=== PATIENT | female | born 1935 | race Caucasian/White ===

== ENCOUNTER 2017-04-28 15:13 | Emergency (ER) | payer OTHER ==
[~2017-04-28] VITALS: Ht 157.5 cm; Wt 75.0 kg
[2017-04-28 15:15] VITALS: BP 132/71; PULSE 70; RESP 14; TEMP 98.5; O2SAT 97
--- NOTE | 2017-04-28 16:32 | PD ---
HPI Chief Complaint: Fall Time Seen by Provider: 16:21 Travel History International Travel<30 days: No Contact w/Intl Traveler<30days: No Traveled to known affect area: No History of Present Illness HPI 81-year-old female presents the emergency department with her son and daughter status post fall from a "dizzy spell", where the patient fell backwards landing on the right hip and hitting the back of her head on a TV tray. Patient denies loss of consciousness, headache, current dizziness, nausea , vomiting, or inability to ambulate. Patient is not on any type of anticoagulant. Patient states she has had a chronic medically previously status post fall several years ago. Patient does not currently use a cane or walker. She does admit to occasional dizzy spells. She has no other current constitutional complaints. Her pain is minimal except where she has a goose egg on the posterior left scalp. Patient also complains of some tenderness to the right hip. PFSH Past Medical History Cardiovascular Problems: Yes ?: Not Social History Alcohol Use: No Tobacco Use: No Substance Use: No Allergies-Medications (Allergen,Severity, Reaction): Coded Allergies: Sulfa (Verified Allergy, Intermediate, Anaphylaxis, 04/28/17) Reported Meds & Prescriptions Reported Meds & Active Scripts Active Reported Crestor (Rosuvastatin Calcium) 10 Mg Tab 10 Mg PO DAILY Valsartan-Hydrochlorothiazide 80-12.5 Mg Tab 1 Tab PO DAILY Levothyroxine (Levothyroxine Sodium) 50 Mcg Tab 50 Mcg PO DAILY Xanax (Alprazolam) 0.5 Mg Tab 0.5 Mg PO Q8H PRN Prilosec (Omeprazole Magnesium) 20 Mg Tab 40 Mg PO DAILY Review of Systems Except as stated in HPI: all other systems reviewed are Neg General / Constitutional: No: Fever Eyes: No: Visual changes HENT: No: Headaches Cardiovascular: No: Chest Pain or Discomfort Respiratory: No: Shortness of Breath Gastrointestinal: No: Abdominal Pain Genitourinary: No: Dysuria Musculoskeletal: Positive: Myalgias, Pain, No: Arthralgias, Limited ROM Skin: No Rash Neurologic: No: Weakness Psychiatric: No: Depression Endocrine: No: Polydipsia Hematologic/Lymphatic: No: Easy Bruising Physical Exam Narrative GENERAL: Patient is alert and oriented 3. She is noted to ambulate to the room. SKIN: Warm and dry. Normal color. Normal turgor. HEAD: Atraumatic. Normocephalic. Patient is tender "goose egg" to the left posterior scalp. There is no abrasion or laceration. EYES: Pupils equal and round. No scleral icterus. No injection or drainage. No nystagmus was noted. ENT: No nasal bleeding or discharge. Mucous membranes pink and moist. Dental injury. Pharynx is clear. Airway is patent. NECK: Trachea midline. No bony tenderness or step-off. Range of motion is full and nontender. C-spine is cleared utilizing nexus criteria. CARDIOVASCULAR: Regular rate and rhythm. RESPIRATORY: No accessory muscle use. Clear to auscultation. Breath sounds equal bilaterally. GASTROINTESTINAL: Abdomen soft, non-tender, nondistended. Hepatic and splenic margins not palpable. MUSCULOSKELETAL: Extremities without clubbing, cyanosis, or edema. No obvious deformities. Patient has mild to moderate tenderness with palpation to the right posterior lateral hip. Range of motion appears intact. Ankle is normal. NEUROLOGICAL: Awake and alert. No obvious cranial nerve deficits. Motor grossly within normal limits. Five out of 5 muscle strength in the arms and legs. Normal speech. PSYCHIATRIC: Appropriate mood and affect; insight and judgment normal. Data Data Last Documented VS Vital Signs Date Time Temp Pulse Resp B/P Pulse Ox O2 Delivery O2 Flow Rate FiO2 04/28/17 18:49 98 Room Air 04/28/17 16:25 18 04/28/17 15:15 98.5 70 132/71 Orders Electrocardiogram (04/28/17 16:59) Ckmb (Isoenzyme) Profile (04/28/17 16:59) Magnesium (Mg) (04/28/17 16:59) Prothrombin Time / Inr (Pt) (04/28/17 16:59) Act Partial Throm Time (Ptt) (04/28/17 16:59) Troponin I (04/28/17 16:59) Chest, Single Ap (04/28/17 16:59) Aspirin Chew (Aspirin Chew) (04/28/17 17:00) CKMB (04/28/17 17:08) CKMB% (04/28/17 17:08) Complete Blood Count With Diff (04/28/17 17:56) Comprehensive Metabolic Panel (04/28/17 17:56) Ct Brain W/O Iv Contrast(Rout) (04/28/17 18:04) Hip, Uni(Ap&Lat) Wo Ap Pelvis (04/28/17 18:04) Iv Access Insert/Monitor (04/28/17 18:04) Oximetry (04/28/17 18:04) Ecg Monitoring (04/28/17 18:04) Sodium Chloride 0.9% Flush (Ns Flush) (04/28/17 18:15) Labs Laboratory Tests Test 04/28/17 04/28/17 17:08 18:00 Prothrombin Time 11.4 SEC Prothromb Time International 1.0 RATIO Ratio Activated Partial 26.1 SEC Thromboplast Time Sodium Level 140 MEQ/L Potassium Level 3.1 MEQ/L Chloride Level 105 MEQ/L Carbon Dioxide Level 26.3 MEQ/L Anion Gap 9 MEQ/L Blood Urea Nitrogen 26 MG/DL Creatinine 0.83 MG/DL Estimat Glomerular Filtration 66 ML/MIN Rate Random Glucose 110 MG/DL Calcium Level 8.9 MG/DL Magnesium Level 2.1 MG/DL Total Bilirubin 0.4 MG/DL Aspartate Amino Transf 21 U/L (AST/SGOT) Alanine Aminotransferase 26 U/L (ALT/SGPT) Alkaline Phosphatase 77 U/L Total Creatine Kinase 106 U/L Creatine Kinase MB 1.8 NG/ML Troponin I LESS THAN 0.02 NG/ML Total Protein 7.2 GM/DL Albumin 3.6 GM/DL White Blood Count 6.2 TH/MM3 Red Blood Count 4.14 MIL/MM3 Hemoglobin 12.6 GM/DL Hematocrit 37.9 % Mean Corpuscular Volume 91.7 FL Mean Corpuscular Hemoglobin 30.5 PG Mean Corpuscular Hemoglobin 33.3 % Concent Red Cell Distribution Width 13.2 % Platelet Count 193 TH/MM3 Mean Platelet Volume 9.0 FL Neutrophils (%) (Auto) 57.0 % Lymphocytes (%) (Auto) 28.7 % Monocytes (%) (Auto) 11.5 % Eosinophils (%) (Auto) 2.4 % Basophils (%) (Auto) 0.4 % Neutrophils # (Auto) 3.5 TH/MM3 Lymphocytes # (Auto) 1.8 TH/MM3 Monocytes # (Auto) 0.7 TH/MM3 Eosinophils # (Auto) 0.1 TH/MM3 Basophils # (Auto) 0.0 TH/MM3 CBC Comment DIFF FINAL Differential Comment MDM Medical Decision Making Medical Screen Exam Complete: Yes Emergency Medical Condition: Yes Medical Record Reviewed: Yes Differential Diagnosis Dizzy spell. Fall. Head injury. Right hip contusion. Possible fracture. Narrative Course Patient appears medically stable at time of exam. Ice pack is applied to the tender area of the scalp. CT of the head is ordered. X-ray of the right hip and pelvis is ordered. 1700 hrs. patient complains of chest for and pressure. Further questioning finds that the patient did have an PA in 2013 treated with stents in [facility]. She has been down here since last Tuesday. She states she has been taking Mucinex for chest congestion, and states she has had increasing chest pain several times a week for the past 6 months. She states her tallow refiner on her in September and states that she was "dismissed. Patient does not recall the last time she had a stress test. Patient does not feel that chest pain caused her to feel dizzy earlier today causing her fall. She describes her pain as a chest pressure across the anterior upper part of her chest. She states that intermittent and approximately a 3 out of 10 currently. EKG is ordered, as well as chest x-ray, and cardiac labs per protocol. Chest x-ray shows no acute process per radiologist. Right hip x-ray and pelvis shows arthritis but no acute process. She is given 324 mg aspirin by mouth. CT is currently pending as well as the right hip x-ray. CBC is unremarkable. First troponin is less than 0.02. Coagulation studies are normal. TMP shows a sodium 140, potassium is 3.1. Random glucose is 110. Patient is given 20 mEq [address] by mouth. CT of the head is negative for acute process. I discussed all the findings with the patient, and recommended that she stay and be evaluated through the chest pain center for possible cardiac syndrome. The patient currently is pain-free, and is returning to [facility] tomorrow, so she is electing to leave AGAINST MEDICAL ADVICE. Patient states she will follow-up with her tallow refiner once she returns home. Patient should return to emergency department immediately if chest pain worsens. Discussed sources of potassium for her to take to increase her level. No prescriptions are given. Diagnosis Primary Impression: Atypical chest pain Additional Impressions: Fall Qualified Code: W19.XXXA - Fall, initial encounter Contusion of scalp, initial encounter Contusion, hip Qualified Code: S70.01XA - Contusion of right hip, initial encounter Patient Instructions: Chest Pain (DC), General Instructions, Head Injury (ED), Hip Contusion (ED), Scalp Contusion in Adults (ED) Additional Instructions: I discussed all the findings with the patient, and recommended that she stay and be evaluated through the chest pain center for possible cardiac syndrome. The patient currently is pain-free, and is returning to [facility] tomorrow, so she is electing to leave AGAINST MEDICAL ADVICE. Patient states she will follow-up with her tallow refiner once she returns home. Patient should return to emergency department immediately if chest pain worsens. Discussed sources of potassium for her to take to increase her level. No prescriptions are given. Med/Other Pt SpecificInfo: No Meds Exist/No RX given Disposition: 07 AGAINST MEDICAL ADVICE Condition: Stable Prabhu Tam Apr 28, 2017 16:32
[2017-04-28] MEDS ORDERED: LEVO50TA4 PO (16:34)
[2017-04-28] MEDS ORDERED: PRIL20TA2 PO (16:34)
[2017-04-28] MEDS ORDERED: ROSU10 PO (16:34)
[2017-04-28] MEDS ORDERED: VALS80TA2 PO (16:34)
[2017-04-28] MEDS ORDERED: ALPR.5 PO (16:34)
[2017-04-28] MEDS ORDERED: ASPIRIN 81 MG CHEW TAB PO ONE (17:00)
--- NOTE | 2017-04-28 17:39 | RADRPT ---
EXAM DATE/TIME: 04/28/2017 17:23 [facility] COMPARISON: No previous studies available for comparison. INDICATIONS : Chest pain, fell MEDICAL HISTORY : Hypertension. SURGICAL HISTORY : None. ENCOUNTER: Initial ACUITY: 1 day PAIN SCORE: 0/10 LOCATION: chest FINDINGS: A single view of the chest demonstrates the lungs to be symmetrically aerated without evidence of mas s, infiltrate or effusion. The cardiomediastinal contours are unremarkable. Osseous structures are intact. CONCLUSION: No acute disease. Ray Gale MD on April 28, 2017 at 17:37 Board Certified Radiologist. This report was verified electronically.
[2017-04-28 17:44] LABS: MAGNESIUM 2.1 MG/DL (1.5-2.5)
[2017-04-28 17:47] LABS: CREATINE KINASE 106 U/L (26-192)
[2017-04-28 17:52] LABS: APTT (PATIENT) 26.1 SEC (24.3-30.1); PROTHROMBIN TIME - PATIENT 11.4 SEC (9.8-11.6)
[2017-04-28 17:59] LABS: CKMB 1.8 NG/ML (0.5-3.6)
[2017-04-28] MEDS ORDERED: SODIUM CHLORIDE 0.9% FLUSH 10 ML FLUSH IVF PRN (18:15)
[2017-04-28 18:28] LABS: AUTOMATED NEUTROPHIL # 3.5 TH/MM3 (1.8-7.7); BASOPHIL % 0.4 % (0.0-2.0); EOSINOPHIL # 0.1 TH/MM3 (0-0.4); EOSINOPHIL % 2.4 % (0.0-4.0); HEMATOCRIT 37.9 % (35.0-46.0); HEMO FLAGS DIFF FINAL; LYMPH % 28.7 % (9.0-44.0); LYMPHOCYTE # 1.8 TH/MM3 (1.0-4.8); MEAN CELL VOLUME 91.7 FL (80.0-100.0); MEAN CORPUSCULAR HEMOGLOBIN 30.5 PG (27.0-34.0); MEAN CORPUSCULAR HGB CONC 33.3 % (32.0-36.0); MONO % 11.5 % (0.0-8.0); PLATELET COUNT 193 TH/MM3 (150-450); RED BLOOD COUNT 4.14 MIL/MM3 (4.00-5.30); RED CELL DISTRIBUTION WIDTH 13.2 % (11.6-17.2); WHITE BLOOD COUNT 6.2 TH/MM3 (4.0-11.0)
--- NOTE | 2017-04-28 18:38 | RADRPT ---
EXAM DATE/TIME: 04/28/2017 18:19 [facility] COMPARISON: No previous studies available for comparison. INDICATIONS : Fall, right hip pain. MEDICAL HISTORY : None. SURGICAL HISTORY : None. ENCOUNTER: Initial ACUITY: 1 day PAIN SCORE: 09/28 LOCATION: Right hip FINDINGS: Extensive degenerative changes about the greater trochanter. Alignment anatomic. Fracture is not ap preciated. SI joints normal. CONCLUSION: Negative for fracture or dislocation. Follow up in 7-10 days is suggested if symptoms persist. Bruce Medina MD FACR on April 28, 2017 at 18:36 Board Certified Radiologist. This report was verified electronically.
[2017-04-28 18:46] LABS: ALT (GPT) 26 U/L (10-53); ANION GAP 9 MEQ/L (5-15); AST (GOT) 21 U/L (15-37); BICARBONATE 26.3 MEQ/L (21.0-32.0); BLOOD UREA NITROGEN 26 MG/DL (7-18); CHLORIDE 105 MEQ/L (98-107); GLOMERULAR FILTRATION RATE 66 ML/MIN (>89); POTASSIUM 3.1 MEQ/L (3.5-5.1); SODIUM (NA) 140 MEQ/L (136-145)
[2017-04-28 18:49] VITALS: O2SAT 98
[2017-04-28 18:49] LABS: ALKALINE PHOSPHATASE 77 U/L (45-117); TOTAL BILIRUBIN ADULT 0.4 MG/DL (0.2-1.0)
--- NOTE | 2017-04-28 19:11 | RADRPT ---
EXAM DATE/TIME: 04/28/2017 18:26 [facility] COMPARISON: No previous studies available for comparison. INDICATIONS : Trauma, fall. RADIATION DOSE: 31.38 CTDIvol (mGy) MEDICAL HISTORY : Cardiovascular disease. Hypertension. SURGICAL HISTORY : None. ENCOUNTER: Initial ACUITY: 1 day PAIN SCALE: 5/10 LOCATION: posterior cranial TECHNIQUE: Multiple contiguous axial images were obtained of the head. Using automated exposure control and adj ustment of the mA and/or kV according to patient size, radiation dose was kept as low as reasonably a chievable to obtain optimal diagnostic quality images. DICOM format image data is available electro nically for review and comparison. FINDINGS: CEREBRUM: The ventricles are normal for age. No evidence of midline shift, mass lesion, hemorrhage or acute in farction. No extra-axial fluid collections are seen. POSTERIOR FOSSA: The cerebellum and brainstem are intact. The 4th ventricle is midline. The cerebellopontine angle i s unremarkable. EXTRACRANIAL: The visualized portion of the orbits is intact. SKULL: The calvaria is intact. No evidence of skull fracture. CONCLUSION: Negative for acute process. Bruce Medina MD FACR on April 28, 2017 at 19:09 Board Certified Radiologist. This report was verified electronically.
[2017-04-28 19:36] VITALS: BP 137/71
--- NOTE | 2017-04-29 15:27 | EKG ---
Date Performed: 04/28/2017 Time Performed: 17:26:55 PTAGE: 81 years EKG: Sinus rhythm NONSPECIFIC T-WAVE ABNORMALITY BORDERLINE ECG NO PREVIOUS TRACING DOCTOR: Kendrick Childers Interpretating Date/Time 04/29/2017 15:26:55
== END 2017-04-28 19:41 | disposition left against medical advice (07) ==
LOC: NEPD 15:13
DX: R07.89 Other chest pain (principal); S00.03XA Contusion of scalp, initial encounter; S70.01XA Contusion of right hip, initial encounter; W19.XXXA Unspecified fall, initial encounter; Z79.899 Other long term (current) drug therapy
CPT/HCPCS: 70450; 71010; 73502; 80053; 82550; 82552; 83735; 84484; 85025; 85610; 85730; 93005